=== PATIENT | female | born 1940 | race Caucasian/White ===

== ENCOUNTER 2017-09-02 21:29 | Inpatient (IN) | payer BC ==
[~2017-09-02] VITALS: Ht 162.6 cm; Wt 72.6 kg
[~2017-09-02 21:29] MED LIST: ACIDOPHILUS1 EAC2 PO; ADVAIR HFA 115-12 GM INH; ALBUTEROL INHAL17 GM; ALBUTEROL2.5 MG/0.5 INH; ALBUTEROL2.5 MG/31 INH; ATROVENT30 ML; AZITHROMYCIN 2250 MG PO; BUSPIRONE HCL10 MG PO; CEFUROXIME500 MG PO; CELEBREX; CELEBREX 200 M200 M1 PO; CELEBREX 200 M200 MG PO; CYMBALTA; DELTA D3400 UNIT; DULERA 100 MCG/13 GM; EFFEXOR75 MG; FUROSEMIDE; FUROSEMIDE 40 M40 M1 PO; LASIX 40 MG TAB40 M2 PO; LEVAQUIN 250 M250 MG PO; LEVAQUIN 500 M500 M2 PO; LEVOTHROID100 MC1 PO; LEVOTHYROXIN0.088 MG PO; MECLIZINE HCL12.5 MG PO; PERCOCET PO; POTASSIUM20; PREDNISONE 10 M10 MG; PREDNISONE 10 M10 MG PO; PREDNISONE50 MG PO; PROAIR HFA8.5 GM INH; PROZAC20 MG PO; RAYOS5 MG PO; SINGULAIR 10 MG10 M1 PO; SPIRIVA RESPIMAT4 G1 IH; SYMBICORT160 MCG/4. INH; SYNTHROID; TYLENOL325 MG PO; VENLAFAXINE HC225 MG PO; VITAMIN D1000 UNI1 PO; VITAMIN D3400 UNIT PO
[2017-09-02 21:34] VITALS: BP 127/100
[2017-09-02 21:57] LABS: HEMATOCRIT 43.2 % (37.0-47.0); HEMOGLOBIN 14.5 gm/dL (12.0-15.0); MCH 31.7 pg (26.0-34.0); MCHC 33.6 g/dL (28.0-37.0); MCV 94.3 fL (80.0-100.0); MPV 8.4 fl. (7.2-11.1); NUCLEATED RBCS 0 /100WBC; PLATELET COUNT* 233 thou/uL (150-400); RBC 4.58 mil/uL (4.20-5.00); RDW-CV 14.6 % (10.5-14.5); WBC 9.1 thou/uL (4.0-11.0)
[2017-09-02 22:06] LABS: ANION GAP 7 mmol/L (7-16); BUN 23 mg/dL (7-18); CALCIUM 8.3 mg/dL (8.5-10.1); CHLORIDE 102 mmol/L (98-107); CO2 30 mmol/L (21-32); CREATININE 0.9 mg/dL (0.6-1.3); GLUCOSE 128 mg/dL (70-99); POTASSIUM 3.6 mmol/L (3.5-5.1); SODIUM 139 mmol/L (136-145)
[2017-09-02 22:16] LABS: ALBUMIN 3.5 g/dL (3.4-5.0); ALKALINE PHOSPHATASE 109 U/L (46-116); LIPASE 86 U/L (73-393); NT-PRO BRAIN NAT PEPTIDE 364 pg/mL (<300); SGOT 74 U/L (15-37); SGPT 71 U/L (30-65); TOTAL BILIRUBIN 0.3 mg/dL (<0.1-1.0); TOTAL PROTEIN 7.2 g/dL (6.4-8.2); TROPONIN-I LEVEL <0.06 ng/mL (<0.06)
[2017-09-02 22:45] LABS: ABSOLUTE BASOPHILS 0.1 thou/uL (0.0-0.2); ABSOLUTE EOSINOPHILS 0.1 thou/uL (0.0-0.7); ABSOLUTE LYMPHOCYTES 0.7 thou/uL (0.8-5.3); ABSOLUTE MONOCYTES 0.4 thou/uL (0.0-1.2); ABSOLUTE NEUTROPHILS 7.8 thou/uL (1.6-8.1); PLATELET ESTIMATE ADEQUATE
[2017-09-03] VITALS: BP 118/55
[2017-09-03 00:07] LABS: INFLUENZA B ANTIGEN None Detected (None Detect)
[2017-09-03 08:25] VITALS: BP 103/54
--- NOTE | 2017-09-03 13:20 | CON ---
[address] [address] CONSULTATION Name: STEPHANE RUVALCABA Room: [address] IN M.R.#: [id number] Admission: 09/02/17 Attend Phys: Jim Stewart Discharge: Date of : 42 Report #: [id number] THIS REPORT FOR: //name// CC: Carlos De Anda HISTORY OF PRESENT ILLNESS: The patient is a 77-year-old female patient with known history of COPD and chronic respiratory failure, on home oxygen at 2 liters per minute. Also, she is on prednisone 5 mg every other day. She presented to the hospital with increasing shortness of breath that started a few days ago. She reported she babysat her grandkids on the New Year. A couple of days later, she started having increasing shortness of breath and cough. The cough sounds congested, but unable to produce any sputum and she thought she has wheezes. The shortness of breath became really worse. Her symptoms progressed over the course of hours and she reported that she felt some chills, but no fever. She has no nausea or vomiting. She has no sputum production. She is a former smoker, quit around 10 years ago. In the past, she had issues with mediastinal lymphadenopathy; however, that resolved after repeat on the CT scan, but also she underwent a bronchoscopy at that time that was negative for endobronchial lesion and cytology was negative. She was found to have flu positive in the ER, although her chest x-ray did not show significant infiltrates. PAST MEDICAL HISTORY: COPD; chronic respiratory failure, on home oxygen and previous sepsis with pneumonia. PAST SURGICAL HISTORY: Hysterectomy, carpal tunnel release, ganglion cyst removal, bronchoscopy and bladder surgery. SOCIAL HISTORY: Ex-smoker, quit around 10 years ago. She has [id number] history of smoking. She is a . Does not drink alcohol excessively, does not abuse drugs. FAMILY HISTORY: Positive for COPD. REVIEW OF SYSTEMS: Full system review of the patient negative, other than as mentioned above. She denied any difficulty swallowing, nausea or vomiting, although she reported one episode of diarrhea. She has no swelling of the lower extremities. No skin rash. The rest of the review of systems was negative. HOME MEDICATIONS: She is on an every other day prednisone 5 mg daily, celecoxib, albuterol, Lasix, levofloxacin and fluoxetine. ALLERGIES: [place] [address] CONSULTATION Name: STEPHANE RUVALCABA Room: [address]#: [id number] Admission: 09/02/17 Attend Phys: Jim Stewart Discharge: Date of : 42 Report #: [id number] PHYSICAL EXAMINATION: VITAL SIGNS: On examination, she is on 3 liters oxygen with saturation more than 90%. Blood pressure 103/54, temperature 36.5, pulse rate around 100 and respiratory rate 18. GENERAL: She is awake, alert, in no distress. HEENT: Head normocephalic, atraumatic. Pupils equal and reactive to light. Extraocular muscle movements intact. No jaundice. External ears look healthy and normal. Nasal passage is patent. Oral cavity, moist mucous membrane. Mallampati 2 to 3. No thrush. NECK: No adenopathy. HEART: S1, S2. No murmur, no gallop. CHEST: Diminished air movement bilaterally. Prolonged expiratory phase with wheezes. Mostly expiratory phase bilaterally equally. No tenderness, no deformities. ABDOMEN: Benign, soft, lax, nontender. Positive bowel sounds. No masses felt. SKIN: Normal for age and race. Warm and dry, No rashes. NEUROLOGIC: Awake, alert and oriented x 3. Moving all extremities. No focal weakness. LYMPHATICS: No palpable lymph nodes. PSYCHIATRIC: Mood and affect slightly anxious. Good insight and judgment. LABORATORY DATA: Her white blood count is 9.1, hemoglobin 14.5 and platelets of 233,000. Her creatinine is 0.9, chloride 102, potassium 3.6 and sodium 139. Her influenza A screen is positive. Her chest x-ray did not show acute infiltrates. IMPRESSION: 1. Zjuhi-if-oauplcu hypoxic respiratory failure. 2. Chronic obstructive pulmonary disease exacerbation. 3. Influenza A. PLAN: At this point, the patient will be on IV steroids. I agree with antibiotic. I will increase the steroid dose and I will increase the frequency of nebulization treatment. We will start her on Tamiflu. We will consider repeating chest x-ray in a day or two depending on her clinical symptoms. Anticipate she might need 2-3 in-patient care with IV medications. Thank you for the consult. <ELECTRONICALLY SIGNED> By: Flex Sinclair MD 09/03/17 1320 1037 [id number] Sinclair MD /nt
[2017-09-03 15:57] VITALS: BP 126/67
[2017-09-03 23:51] VITALS: BP 111/45
[2017-09-04 04:26] LABS: ABSOLUTE LYMPHOCYTES 0.2 thou/uL (0.8-5.3); ABSOLUTE MONOCYTES 0.3 thou/uL (0.0-1.2); ABSOLUTE NEUTROPHILS 8.1 thou/uL (1.6-8.1); BASOPHILS 0.1 %; HEMATOCRIT 36.8 % (37.0-47.0); LYMPHOCYTES 2.8 %; MCH 31.2 pg (26.0-34.0); MCHC 32.7 g/dL (28.0-37.0); MCV 95.3 fL (80.0-100.0); MONOCYTES 2.9 %; MPV 8.8 fl. (7.2-11.1); NUCLEATED RBCS 0 /100WBC; PLATELET COUNT* 205 thou/uL (150-400); POLYS 94.2 %; RBC 3.86 mil/uL (4.20-5.00); RDW-CV 14.5 % (10.5-14.5); WBC 8.6 thou/uL (4.0-11.0)
[2017-09-04 04:33] LABS: HEMOGLOBIN 12.1 gm/dL (12.0-15.0)
[2017-09-04 04:36] LABS: CALCIUM 7.9 mg/dL (8.5-10.1); CREATININE 0.9 mg/dL (0.6-1.3); POTASSIUM 3.5 mmol/L (3.5-5.1)
[2017-09-04 08:16] VITALS: BP 118/47
--- NOTE | 2017-09-04 14:03 | EKG ---
[place] [address] ELECTROCARDIOGRAM REPORT Name: STEPHANE RUVALCABA Room: [address] ADM IN .R.#: [id number] Admission: 09/02/17 Attend Phys: Jim Stewart Discharge: Date of : 42 Report #: [id number] THIS REPORT FOR: //name// [facility] ED Test Date: 2017-09-02 Test Time: 22:10:57 Pat Name: STEPHANE RUVALCABA Department: Room: [facility] Gender: F Face Boss: JOSE R Paul : 1940 Requested By: Jeronimo Orozco Order Number: [id number] MD: Gee Garcias Measurements Intervals [place] Rate: 108 P: 91 OR: 163 QRS: -8 QRSD: 80 T: 44 QT: 354 QTc: 475 Interpretive Statements Second degree AV block, Mobitz II Sinus tachycardia with pac's and pvc's Aberrant conduction of SV complex(es) Biatrial enlargement Anteroseptal infarct, age indeterminate possible Artifact in lead(s) I,III,aVL,V3,V4,V5,V6 and baseline wander in lead(s) V2 Compared to ECG 10/02/2016 09:29:45Ventricular premature complex(es) now present Aberrant conduction of supraventricular beat(s) now present Electronically Signed On 09-04-2017 14:03:31 FURNACE FILLER by Gee Garcias [email or web address] <ELECTRONICALLY SIGNED> By: Gee Garcias MD, [facility] 09/04/17 1403 09 221 Gee Garcias MD, [facility] /EPI
[2017-09-04 17:40] VITALS: BP 96/43
[2017-09-04 20:00] VITALS: BP 121/35
[2017-09-05 00:29] VITALS: BP 124/54
[2017-09-05 04:45] VITALS: BP 99/48
[2017-09-05 09:00] VITALS: BP 119/53
[2017-09-05] MEDS ORDERED: TAMIFLU75 MG PO (11:08)
[2017-09-05 11:11] VITALS: BP 119/53
[2017-09-05] MEDS ORDERED: PROTONIX40 M2 PO (11:18)
[2017-09-05] MEDS ORDERED: [UNRECOGNIZED DRUG - CODE] PO (11:19)
== END 2017-09-05 11:40 | disposition home or self-care (01) | DRG 871 ==
LOC: M.ERS 21:29 → M.3W 22:57 → M.TBA-ER 22:57 → M.3W 09-03 00:05
PROVIDERS: Emergency Medicine; Internal Medicine; ADMIT Internal Medicine
DX: A41.9 Sepsis, unspecified organism (principal); J96.21 Acute and chronic respiratory failure with hypoxia; J44.1 Chronic obstructive pulmonary disease with (acute) exacerbation; J44.0 Chronic obstructive pulmonary disease with (acute) lower respiratory infection; E03.9 Hypothyroidism, unspecified; J11.1 Influenza due to unidentified influenza virus with other respiratory manifestations; J20.9 Acute bronchitis, unspecified; M19.90 Unspecified osteoarthritis, unspecified site; Z82.49 Family history of ischemic heart disease and other diseases of the circulatory system; Z90.710 Acquired absence of both cervix and uterus; Z88.0 Allergy status to penicillin; Z87.01 Personal history of pneumonia (recurrent); Z87.891 Personal history of nicotine dependence; Z82.5 Family history of asthma and other chronic lower respiratory diseases

== ENCOUNTER → 2018-01-19 | Outpatient (CLI) | payer BC, OTHER ==
[~2018-01-19] MED LIST changes: +PROTONIX40 M2 PO; +TAMIFLU75 MG PO; +[UNRECOGNIZED DRUG - CODE] PO
== END ==
LOC: M.RAD 08:35
DX: M81.0 Age-related osteoporosis without current pathological fracture (principal); M85.89 Other specified disorders of bone density and structure, multiple sites; M15.9 Polyosteoarthritis, unspecified; Z78.0 Asymptomatic menopausal state

== ENCOUNTER → 2018-07-19 | Outpatient (CLI) | payer BC | LOC: M.CT 08:54 | DX: J84.10 Pulmonary fibrosis, unspecified (principal); R06.02 Shortness of breath; R63.4 Abnormal weight loss; Z87.891 Personal history of nicotine dependence ==

== ENCOUNTER 2019-01-18 10:22 | Emergency (ER) | payer BC ==
[~2019-01-18] VITALS: Ht 167.6 cm; Wt 63.0 kg
[2019-01-18 11:13] LABS: HEMATOCRIT 48.7 % (37.0-47.0); HEMOGLOBIN 15.9 gm/dL (12.0-15.0); MCH 31.2 pg (26.0-34.0); MCHC 32.7 g/dL (28.0-37.0); MCV 95.6 fL (80.0-100.0); MPV 7.7 fl. (7.2-11.1); NUCLEATED RBCS 0 /100WBC; PLATELET COUNT* 378 thou/uL (150-400); RBC 5.09 mil/uL (4.20-5.00); RDW-CV 14.5 % (10.5-14.5); WBC 16.6 thou/uL (4.0-11.0)
[2019-01-18 11:25] LABS: ANION GAP 7 mmol/L (7-16); BUN 32 mg/dL (7-18); CALCIUM 10.2 mg/dL (8.5-10.1); CHLORIDE 101 mmol/L (98-107); CO2 33 mmol/L (21-32); GLUCOSE 93 mg/dL (70-99); POTASSIUM 3.9 mmol/L (3.5-5.1); SODIUM 141 mmol/L (136-145)
[2019-01-18 11:38] LABS: ALBUMIN 3.7 g/dL (3.4-5.0); ALKALINE PHOSPHATASE 124 U/L (46-116); SGOT 44 U/L (15-37); SGPT 71 U/L (30-65); TOTAL BILIRUBIN 0.6 mg/dL (<0.1-1.0); TOTAL PROTEIN 7.5 g/dL (6.4-8.2); TROPONIN-I LEVEL <0.06 ng/mL (<0.06)
[2019-01-18 11:39] LABS: ABSOLUTE LYMPHOCYTES 1.2 thou/uL (0.8-5.3); ABSOLUTE MONOCYTES 0.7 thou/uL (0.0-1.2); ABSOLUTE NEUTROPHILS 14.8 thou/uL (1.6-8.1); ATYPICAL LYMPHS 1 %; PLATELET ESTIMATE ADEQUATE
[2019-01-18] MEDS ORDERED: CEFDINIR300 MG PO (13:51)
[2019-01-18] MEDS ORDERED: NEBULIZER MISCELL (13:51)
[2019-01-18] MEDS ORDERED: IPRAT-ALBUT 0.5-3 ML INH (13:51)
[2019-01-18] MEDS ORDERED: PREDNISONE50 MG PO (13:51)
[2019-01-18 14:13] VITALS: BP 100/53
== END 2019-01-18 14:13 | disposition home or self-care (01) ==
LOC: M.ERS 10:22
PROVIDERS: Personal Emergency Response Attendant
DX: J44.1 Chronic obstructive pulmonary disease with (acute) exacerbation (principal); E03.9 Hypothyroidism, unspecified; M19.90 Unspecified osteoarthritis, unspecified site; Z87.891 Personal history of nicotine dependence; Z88.0 Allergy status to penicillin

== ENCOUNTER 2019-08-14 11:03 | Emergency (ER) | payer BC ==
[~2019-08-14] VITALS: Ht 162.6 cm; Wt 59.0 kg
[~2019-08-14 11:03] MED LIST changes: +CEFDINIR300 MG PO; +IPRAT-ALBUT 0.5-3 ML INH; +NEBULIZER MISCELL
[2019-08-14] MEDS ORDERED: WELLBUTRIN SR150 M1 PO (11:15)
[2019-08-14 11:33] LABS: ABSOLUTE BASOPHILS 0.1 thou/uL (0.0-0.2); ABSOLUTE EOSINOPHILS 0.1 thou/uL (0.0-0.7); ABSOLUTE LYMPHOCYTES 0.9 thou/uL (0.8-5.3); ABSOLUTE MONOCYTES 0.4 thou/uL (0.0-1.2); ABSOLUTE NEUTROPHILS 4.7 thou/uL (1.6-8.1); BASOPHILS 1.1 %; EOSINOPHILS 1.9 %; HEMATOCRIT 43.7 % (37.0-47.0); HEMOGLOBIN 14.6 gm/dL (12.0-15.0); LYMPHOCYTES 13.9 %; MCH 31.9 pg (26.0-34.0); MCHC 33.3 g/dL (28.0-37.0); MCV 95.8 fL (80.0-100.0); MONOCYTES 7.1 %; MPV 8.2 fl. (7.2-11.1); NUCLEATED RBCS 0 /100WBC; PLATELET COUNT* 254 thou/uL (150-400); RBC 4.56 mil/uL (4.20-5.00); WBC 6.2 thou/uL (4.0-11.0)
[2019-08-14 11:42] LABS: CALCIUM 8.9 mg/dL (8.5-10.1); CREATININE 0.8 mg/dL (0.6-1.3); POTASSIUM 3.1 mmol/L (3.5-5.1)
[2019-08-14 11:47] LABS: ALBUMIN 3.6 g/dL (3.4-5.0); TOTAL BILIRUBIN 0.3 mg/dL (<0.1-1.0); TOTAL PROTEIN 7.2 g/dL (6.4-8.2)
[2019-08-14 11:50] LABS: INFLUENZA A ANTIGEN Negative (Negative); INFLUENZA B ANTIGEN Negative (Negative)
[2019-08-14] MEDS ORDERED: IPRAT-ALBUT 0.5-3 ML INH (12:59)
[2019-08-14] MEDS ORDERED: ZPAK PO (12:59)
[2019-08-14] MEDS ORDERED: PREDNISONE 20 M20 MG PO (13:01)
[2019-08-14 13:16] VITALS: BP 106/40
--- NOTE | 2019-08-15 10:45 | EKG ---
[place] [address] ELECTROCARDIOGRAM REPORT Name: STEPHANE RUVALCABA Room: [facility]#: [id number] Admission: 08/14/19 Attend Phys: Discharge: 08/14/19 Date of : 42 Report #: [id number] THIS REPORT FOR: //name// [facility] ED Test Date: 2019-08-14 Test Time: 11:11:54 Pat Name: STEPHANE RUVALCABA Department: Room: Gender: F Slide Forming Machine Operator: OUMOU : 1940 Requested By: Ace Recinos Order Number: [id number] MD: Tommy Fenton Measurements Intervals [place] Rate: 104 P: 77 AK: 153 QRS: -19 QRSD: 111 T: 70 QT: 363 QTc: 478 Interpretive Statements Sinus tachycardia Ventricular premature complex Right atrial enlargement Baseline wander in lead(s) I,II,III,aVR,aVL,aVF,V1,V6 Compared to ECG 09/02/2017 22:10:57 Aberrant conduction of supraventricular beat(s) no longer present Myocardial infarct finding no longer seen Electronically Signed On 08-15-2019 10:44:58 PULLEY MAN by Tommy Fenton [email or web address] <ELECTRONICALLY SIGNED> By: Tommy Fenton MD, FACC 08/15/19 1044 1111 1111 Tommy Fenton MD, FACC /EPI
== END 2019-08-14 13:16 | disposition home or self-care (01) ==
LOC: M.ERS 11:03
PROVIDERS: Physician Assistant
DX: J44.1 Chronic obstructive pulmonary disease with (acute) exacerbation (principal); E03.9 Hypothyroidism, unspecified; Z90.710 Acquired absence of both cervix and uterus; Z87.01 Personal history of pneumonia (recurrent); Z87.891 Personal history of nicotine dependence; Z88.0 Allergy status to penicillin

== ENCOUNTER → 2021-02-11 | Outpatient (CLI) | payer BC ==
[~2021-02-11] MED LIST changes: +PREDNISONE 20 M20 MG PO; +WELLBUTRIN SR150 M1 PO; +ZPAK PO
== END ==
LOC: M.RAD 15:19
PROVIDERS: ATTEND Family Medicine
DX: M81.0 Age-related osteoporosis without current pathological fracture (principal)

== ENCOUNTER 2021-08-07 09:26 | Emergency (ER) | payer BC ==
[~2021-08-07] VITALS: Ht 162.6 cm; Wt 49.4 kg
[2021-08-07 10:41] LABS: INFLUENZA A ANTIGEN Negative (Negative); INFLUENZA B ANTIGEN Negative (Negative)
[2021-08-07 12:06] LABS: URINE BILIRUBIN NEGATIVE (Negative); URINE BLOOD NEGATIVE (Negative); URINE CLARITY CLEAR; URINE COLOR YELLOW; URINE GLUCOSE-RANDOM NEGATIVE (Negative); URINE KETONES NEGATIVE (Negative); URINE LEUKOCYTES NEGATIVE (Negative); URINE NITRITE NEGATIVE (Negative); URINE PROTEIN NEGATIVE (Negative); URINE SPECIFIC GRAVITY 1.015 (1.005-1.030); URINE UROBILINOGEN 0.2 E.U./dl (0.2-1.0)
[2021-08-07 12:15] LABS: ABSOLUTE NEUTROPHILS 4.8 thou/uL (1.6-8.1); HEMOGLOBIN 13.3 gm/dL (12.0-15.0); NUCLEATED RBCS 0 /100WBC
[2021-08-07 12:16] LABS: ABSOLUTE BASOPHILS 0.1 thou/uL (0.0-0.2); ABSOLUTE EOSINOPHILS 0.2 thou/uL (0.0-0.7); ABSOLUTE MONOCYTES 0.5 thou/uL (0.0-1.2); BASOPHILS 0.9 %; EOSINOPHILS 3.7 %; HEMATOCRIT 40.3 % (37.0-47.0); LYMPHOCYTES 15.6 %; MCH 31.7 pg (26.0-34.0); MCHC 32.9 g/dL (28.0-37.0); MCV 96.3 fL (80.0-100.0); MONOCYTES 7.6 %; MPV 8.2 fl. (7.2-11.1); PLATELET COUNT* 224 thou/uL (150-400); POLYS 72.2 %; RBC 4.19 mil/uL (4.20-5.00); RDW-CV 14.6 % (10.5-14.5); WBC 6.7 thou/uL (4.0-11.0)
[2021-08-07 12:32] LABS: CALCIUM 8.4 mg/dL (8.5-10.1); CREATININE 0.6 mg/dL (0.6-1.3); POTASSIUM 3.2 mmol/L (3.5-5.1)
[2021-08-07 12:37] LABS: ALBUMIN 3.2 g/dL (3.4-5.0); TOTAL BILIRUBIN 0.4 mg/dL (<0.1-1.0); TOTAL PROTEIN 6.5 g/dL (6.4-8.2)
--- NOTE | 2021-08-07 13:23 | EKG ---
[place] [address] ELECTROCARDIOGRAM REPORT Name: STEPHANE RUVALCABA Room: [facility]#: [id number] Admission: 08/07/21 Attend Phys: Discharge: Date of : 42 Date of Service: 08/07/21 0943 Report #: [id number] THIS REPORT FOR: //name// [facility] ED Test Date: 2021-08-07 Test Time: 09:43:14 Pat Name: STEPHANE RUVALCABA Department: Room: Gender: Sugar Boiler: : 1940 Requested By: Andrew Leon Order Number: [id number] MD: Tommy Fenton Measurements Intervals [place] Rate: 96 P: 101 AK: 158 QRS: 54 QRSD: 97 T: 246 QT: 459 QTc: 581 Interpretive Statements Sinus rhythm Multiform ventricular premature complexes Right atrial enlargement Nonspecific repol abnormality, inferior leads Prolonged QT interval Artifact in lead(s) I,III,aVR,aVL,aVF Compared to ECG 08/14/2019 11:11:54 Sinus tachycardia no longer present Electronically Signed On 08-07-2021 13:22:51 FABRIC MACHINE OPERATOR by Tommy Fenton [email or web address] <ELECTRONICALLY SIGNED> By: Tommy Fenton MD, FACC 08/07/21 1322 0943 0943 Tommy Fenton MD, FACC /EPI
[2021-08-07] MEDS ORDERED: PREDNISONE50 MG PO (14:53)
[2021-08-07 15:13] VITALS: BP 112/41
== END 2021-08-07 15:15 | disposition home or self-care (01) ==
LOC: M.ERS 09:26
PROVIDERS: Physician Assistant
DX: J44.1 Chronic obstructive pulmonary disease with (acute) exacerbation (principal); Z20.822 Contact with and (suspected) exposure to COVID-19; E03.9 Hypothyroidism, unspecified; Z90.710 Acquired absence of both cervix and uterus; Z87.891 Personal history of nicotine dependence; Z88.0 Allergy status to penicillin

== ENCOUNTER → 2021-10-10 | Outpatient (CLI) | payer BC | LOC: M.CT 10:43 | PROVIDERS: ATTEND Family Medicine | DX: G31.89 Other specified degenerative diseases of nervous system (principal) ==